=== PATIENT | male | born 1990 | race Caucasian/White ===

== ENCOUNTER 2018-04-21 04:36 | Inpatient (IN) | payer OTHER ==
[2018-04-21] VITALS (11 sets, daily range): BP systolic 99–135; BP diastolic 61–90
[~2018-04-21] VITALS: Ht 188 cm; Wt 115.4 kg
--- NOTE | ~2018-04-21 | EKG ---
[place], [place] ELECTROCARDIOGRAM REPORT NAME: FUENTES VELASQUEZ UNIT #: [id number] ROOM: 406 DOCTOR: CELY DRAFT REPORT BIRTHDATE: [birth year] [facility] Test Date: 2018-04-21 Test Time: 04:38:07 Pat Name: FUENTES VELASQUEZ Department: Room: 406 Gender: M Abalone Diver: Billy Sen : 1990 Requested By: OSWALD PICHARDO Order Number: [id number] Reading MD: William Brown MD Measurements Intervals [place] Rate: 70 P: -4 NE: 142 QRS: 87 QRSD: 102 T: 16 QT: 372 QTc: 402 Interpretive Statements Sinus arrhythmia ST elevation suggests acute pericarditis Baseline wander in lead(s) V4,V5 Electronically Signed On 04-24-2018 9:07:47 PDT by William Brown MD CM:EKGRPT:ELECTROCARDIOGRAM REPORT [id number] OSWALD ALDRICH DRAFT REPORT OSWALD PICHARDO DO
[2018-04-21 05:07] LABS: BASO % 0.2 % (0.0-1.0); EOS % 0.2 % (1.0-4.0); HEMATOCRIT 49.1 % (42.0-52.0); HEMOGLOBIN 16.8 g/dl (14.0-18.0); LYMPH # 2.3 10*3/uL (1.3-4.4); LYMPH % 14.7 % (27.0-41.0); MEAN CELL VOLUME 86.3 fl (80.0-94.0); MEAN CORPUSCULAR HGB 29.5 pg (27.0-31.0); MEAN CORPUSCULAR HGB CONC 34.2 g/dl (33.0-37.0); MEAN PLATELET VOLUME 9.5 fl (9.6-12.3); MONO # 0.6 10*3/uL (0.1-1.0); NEUT # 12.6 10*3/uL (2.3-7.9); NEUT % 80.5 % (47.0-73.0); PLATELET COUNT AUTOMATED 360 10*3/uL (130-400); RED BLOOD COUNT 5.69 10*6/uL (4.50-5.90); RED CELL DISTRI WIDTH 11.9 % (0-14.5); WHITE BLOOD COUNT 15.6 10*3/uL (4.8-10.8)
[2018-04-21 05:18] LABS: ACT PARTIAL THROMBO TIME 22.7 SECONDS (20.8-31.5)
[2018-04-21 05:31] LABS: ALBUMIN 4.4 gm/dl (3.1-4.5); ALKALINE PHOSPHATASE 55 U/L (45-117); BUN 17 mg/dl (7-24); CHLORIDE 103 mmol/L (98-107); CREATININE 1.11 mg/dL (0.70-1.30); POTASSIUM 3.6 mmol/L (3.5-5.1); SGOT/AST 14 IU/L (3-35); SGPT/ALT 25 U/L (12-78); SODIUM 138 mmol/L (136-145); TOTAL PROTEIN 8.4 gm/dL (6.4-8.2)
[2018-04-21 05:32] LABS: TROPONIN I < 0.015 ng/ml (<0.045)
[2018-04-21 05:40] LABS: BILIRUBIN NEGATIVE (NEGATIVE); BLOOD NEGATIVE (NEGATIVE); CLARITY TURBID (CLEAR); COLOR YELLOW (YELLOW); GLUCOSE NEGATIVE (NEGATIVE); KETONE 1+ (NEGATIVE); LEUKO ESTERASE NEGATIVE (NEGATIVE); NITRITE NEGATIVE (NEGATIVE); SPECIFIC GRAVITY 1.015 (1.005-1.030)
[2018-04-21 05:53] LABS: BACTERIA TRACE; EPITHELIAL CELLS 0-5; RBC 0-2 rbc/hpf (0-2); WBC 0-2 wbc/hpf (0-5)
[2018-04-21 05:56] LABS: URINE AMPHETAMINES < 1000 (1000ng/ml); URINE BARBITURATES < 200 (200ng/ml); URINE BENZODIAZEPINES < 200 (200ng/ml); URINE CANNABINOIDS (THC) < 50 (50ng/ml); URINE COCAINE < 300 (300ng/ml); URINE METHADONE < 300 (300ng/ml); URINE OPIATES < 300 (300ng/ml)
[2018-04-21 06:03] LABS: URINE PHENCYCLIDINE < 25 (25ng/ml)
[2018-04-22] VITALS: BP 106/69
[2018-04-22 06:02] LABS: BUN 8 mg/dl (7-24); CHLORIDE 109 mmol/L (98-107); CHOLESTEROL 89 mg/dL (<200); CREATININE 0.73 mg/dL (0.70-1.30); PHOSPHOROUS 3.6 mg/dL (2.5-4.9); POTASSIUM 4.5 mmol/L (3.5-5.1); SGOT/AST 63 IU/L (3-35); SGPT/ALT 131 U/L (12-78); SODIUM 141 mmol/L (136-145); TRIGLYCERIDES 64 mg/dl (<150); VLDL CHOLESTEROL 13 mg/dL (6-40)
[2018-04-22 06:09] LABS: ALKALINE PHOSPHATASE 47 U/L (45-117); FREE T4 1.37 ng/dl (0.76-1.46); HDL CHOLESTEROL 39 mg/dl (40-60); LDL CHOLESTEROL 37 mg/dL (9-159); THYROID STIM HORMONE (HS) 0.858 uIU/ml (0.358-4.75); TOTAL PROTEIN 6.4 gm/dL (6.4-8.2)
[2018-04-22 06:22] LABS: BASO % 0.2 % (0.0-1.0); EOS % 0.3 % (1.0-4.0); HEMATOCRIT 43.4 % (42.0-52.0); LYMPH # 1.9 10*3/uL (1.3-4.4); LYMPH % 15.8 % (27.0-41.0); MEAN CORPUSCULAR HGB 29.1 pg (27.0-31.0); MEAN PLATELET VOLUME 9.7 fl (9.6-12.3); MONO # 0.9 10*3/uL (0.1-1.0); MONO % 7.8 % (3.0-9.0); NEUT # 9.1 10*3/uL (2.3-7.9); NEUT % 75.6 % (47.0-73.0); RED BLOOD COUNT 4.77 10*6/uL (4.50-5.90); RED CELL DISTRI WIDTH 12.1 % (0-14.5); WHITE BLOOD COUNT 12.1 10*3/uL (4.8-10.8)
[2018-04-22 06:23] LABS: HEMOGLOBIN 13.9 g/dl (14.0-18.0); PLATELET COUNT AUTOMATED 239 10*3/uL (130-400)
[2018-04-22 06:30] LABS: ACT PARTIAL THROMBO TIME 23.7 SECONDS (20.8-31.5); INTERNATIONAL NORM RATIO 1.1 (2.0-3.5)
[2018-04-22 08:00] VITALS: BP 90/67
[2018-04-22 08:18] LABS: VITAMIN D, 25-HYDROXY 24.8 ng/mL (30-100)
[2018-04-22] MEDS ORDERED: HYDROCODONE-AC1 EAC1 PO (10:38)
[2018-04-22] MEDS ORDERED: AUGMENTIN 875875 MG PO (10:38)
== END 2018-04-22 12:24 | disposition home or self-care (01) | DRG 419 ==
LOC: ED 04:36 → EDHOLD 06:50 → 4E 07:02
PROVIDERS: Family Medicine; Student in an Organized Health Care Education/Training Program
PROC: 0FT44ZZ Resection of Gallbladder, Percutaneous Endoscopic Approach (ICD-10-PCS; principal; 2018-04-21)
PROC: BF131ZZ Fluoroscopy of Gallbladder and Bile Ducts using Low Osmolar Contrast (ICD-10-PCS; principal; 2018-04-21)
DX: K80.62 Calculus of gallbladder and bile duct with acute cholecystitis without obstruction (principal); K21.9 Gastro-esophageal reflux disease without esophagitis; D72.829 Elevated white blood cell count, unspecified; R73.9 Hyperglycemia, unspecified; E83.41 Hypermagnesemia; R82.4 Acetonuria; R07.9 Chest pain, unspecified; Z83.3 Family history of diabetes mellitus; Z82.49 Family history of ischemic heart disease and other diseases of the circulatory system; Z79.899 Other long term (current) drug therapy; Z72.0 Tobacco use; Z71.6 Tobacco abuse counseling

== ENCOUNTER 2018-04-27 16:07 | Emergency (ER) | payer OTHER ==
[~2018-04-27] VITALS: Ht 187.9 cm; Wt 115.7 kg
[~2018-04-27 16:07] MED LIST: AUGMENTIN 875875 MG PO; HYDROCODONE-AC1 EAC1 PO
[2018-04-27 16:51] LABS: BASO % 0.2 % (0.0-1.0); EOS # 0.2 10*3/uL (0.0-0.4); EOS % 2.5 % (1.0-4.0); HEMATOCRIT 45.1 % (42.0-52.0); HEMOGLOBIN 14.6 g/dl (14.0-18.0); LYMPH # 2.4 10*3/uL (1.3-4.4); LYMPH % 27.4 % (27.0-41.0); MEAN CELL VOLUME 90.7 fl (80.0-94.0); MEAN CORPUSCULAR HGB 29.4 pg (27.0-31.0); MEAN CORPUSCULAR HGB CONC 32.4 g/dl (33.0-37.0); MEAN PLATELET VOLUME 9.3 fl (9.6-12.3); MONO # 0.5 10*3/uL (0.1-1.0); MONO % 6.1 % (3.0-9.0); NEUT # 5.5 10*3/uL (2.3-7.9); NEUT % 63.6 % (47.0-73.0); PLATELET COUNT AUTOMATED 269 10*3/uL (130-400); RED BLOOD COUNT 4.97 10*6/uL (4.50-5.90); WHITE BLOOD COUNT 8.7 10*3/uL (4.8-10.8)
[2018-04-27 17:07] LABS: ALBUMIN 3.6 gm/dl (3.1-4.5); ALKALINE PHOSPHATASE 53 U/L (45-117); BUN 14 mg/dl (7-24); CHLORIDE 105 mmol/L (98-107); CREATININE 1.59 mg/dL (0.70-1.30); SGOT/AST 12 IU/L (3-35); SGPT/ALT 42 U/L (12-78); SODIUM 140 mmol/L (136-145); TOTAL PROTEIN 6.9 gm/dL (6.4-8.2)
[2018-04-27 17:40] LABS: BILIRUBIN NEGATIVE (NEGATIVE); CLARITY CLEAR (CLEAR); COLOR YELLOW (YELLOW); GLUCOSE NEGATIVE (NEGATIVE)
[2018-04-27 17:41] LABS: BLOOD NEGATIVE (NEGATIVE); KETONE TRACE (NEGATIVE); LEUKO ESTERASE NEGATIVE (NEGATIVE); NITRITE NEGATIVE (NEGATIVE); SPECIFIC GRAVITY 1.005 (1.005-1.030); UROBILINOGEN 0.2 E.U./dl (0.2-1.0)
[2018-04-27 17:53] LABS: BACTERIA 2+; EPITHELIAL CELLS 0-2; RBC 0-2 rbc/hpf (0-2); WBC 0-2 wbc/hpf (0-5)
[2018-04-27] MEDS ORDERED: COLACE100 MG PO (18:52)
== END 2018-04-27 18:59 ==
LOC: ED 16:07
PROVIDERS: Nurse Practitioner Family
DX: K59.00 Constipation, unspecified (principal); R50.9 Fever, unspecified; R10.32 Left lower quadrant pain; R10.33 Periumbilical pain; Z90.49 Acquired absence of other specified parts of digestive tract

== ENCOUNTER 2018-06-05 16:11 | Emergency (ER) | payer SELFPAY ==
[~2018-06-05] VITALS: Ht 187.9 cm; Wt 113.4 kg
--- NOTE | ~2018-06-05 | EKG ---
[place], [place] ELECTROCARDIOGRAM REPORT NAME: FUENTES VELASQUEZ UNIT #: [id number] ROOM: DOCTOR: CELY DRAFT REPORT BIRTHDATE: [birth year] [facility] Test Date: 2018-06-05 Test Time: 16:14:11 Pat Name: FUENTES VELASQUEZ Department: Room: Gender: Box Spinner: Shawna Covarrubias : 1990 Requested By: ROX SALEH Order Number: [id number] Reading MD: Minh Morgan MD Measurements Intervals [place] Rate: 70 P: 23 [place]: 142 QRS: 93 QRSD: 99 T: 25 QT: 380 QTc: 410 Interpretive Statements Sinus arrhythmia Probable right ventricular hypertrophy Compared to ECG 04/21/2018 04:38:07 No significant change Electronically Signed On 06-06-2018 4:56:54 PST by Minh Morgan MD CM:EKGRPT:ELECTROCARDIOGRAM REPORT [id number] ROX ALDRICH DRAFT REPORT ROX SALEH DO
[~2018-06-05 16:11] MED LIST changes: +COLACE100 MG PO
[2018-06-05 16:30] LABS: BASO % 0.4 % (0.0-1.0); EOS # 0.5 10*3/uL (0.0-0.4); EOS % 6.1 % (1.0-4.0); HEMATOCRIT 43.9 % (42.0-52.0); HEMOGLOBIN 14.7 g/dl (14.0-18.0); LYMPH # 2.5 10*3/uL (1.3-4.4); LYMPH % 34.1 % (27.0-41.0); MEAN CELL VOLUME 88.2 fl (80.0-94.0); MEAN CORPUSCULAR HGB 29.5 pg (27.0-31.0); MEAN CORPUSCULAR HGB CONC 33.5 g/dl (33.0-37.0); MEAN PLATELET VOLUME 9.7 fl (9.6-12.3); MONO # 0.5 10*3/uL (0.1-1.0); MONO % 6.9 % (3.0-9.0); NEUT # 3.8 10*3/uL (2.3-7.9); NEUT % 52.2 % (47.0-73.0); PLATELET COUNT AUTOMATED 233 10*3/uL (130-400); RED BLOOD COUNT 4.98 10*6/uL (4.50-5.90); RED CELL DISTRI WIDTH 12.2 % (0-14.5); WHITE BLOOD COUNT 7.4 10*3/uL (4.8-10.8)
[2018-06-05 16:47] LABS: ALBUMIN 4.2 gm/dl (3.1-4.5); ALKALINE PHOSPHATASE 87 U/L (45-117); BUN 15 mg/dl (7-24); CHLORIDE 107 mmol/L (98-107); CREATININE 1.07 mg/dL (0.70-1.30); POTASSIUM 3.6 mmol/L (3.5-5.1); SGOT/AST 26 IU/L (3-35); SGPT/ALT 87 U/L (12-78); SODIUM 141 mmol/L (136-145); TOTAL PROTEIN 7.4 gm/dL (6.4-8.2)
[2018-06-05 16:51] LABS: ACT PARTIAL THROMBO TIME 25.3 SECONDS (20.8-31.5)
[2018-06-05 16:54] LABS: TROPONIN I < 0.015 ng/ml (<0.045)
[2018-06-05] MEDS ORDERED: PREDNISONE10 MG PO (16:56)
[2018-06-05] MEDS ORDERED: CHLORZOXAZONE500 M2 PO (17:42)
== END 2018-06-05 18:27 | disposition home or self-care (01) ==
LOC: ED 16:11
PROVIDERS: Emergency Medicine
DX: R07.89 Other chest pain (principal); R03.0 Elevated blood-pressure reading, without diagnosis of hypertension; R20.2 Paresthesia of skin; R20.0 Anesthesia of skin; M79.641 Pain in right hand; M79.642 Pain in left hand; M25.531 Pain in right wrist; M25.532 Pain in left wrist; F17.200 Nicotine dependence, unspecified, uncomplicated; Z88.5 Allergy status to narcotic agent; Z90.49 Acquired absence of other specified parts of digestive tract